=== PATIENT | female | born 1955 | race Caucasian/White ===

== ENCOUNTER → 2017-06-29 | Outpatient (CLI) | payer OTHER ==
[~2017-06-29] MED LIST: ASPI81CH; DEXL60CA3; DILT120; LOSA50; Stool Softener100 MG
[2017-06-29 10:36] LABS: BASOPHILS ABSOLUTE AUTO 0.03 K/mm3 (0.00-0.23); BASOPHILS PERCENT AUTO 0 % (0-2); EOSINOPHILS ABSOLUTE AUTO 0.03 K/mm3 (0.00-0.68); EOSINOPHILS PERCENT AUTO 0 % (0-6); Hematocrit 37.1 % (33.0-51.0); Hemoglobin 12.7 g/dL (11.5-16.0); IMMATURE GRAN ABSOLUTE AUTO 0.02 K/mm3 (0.00-0.10); IMMATURE GRAN PERCENT AUTO 0 % (0-1); LYMPHOCYTES ABSOLUTE AUTO 1.75 K/mm3 (0.84-5.20); LYMPHOCYTES PERCENT AUTO 23 % (21-46); MONOCYTES ABSOLUTE AUTO 0.36 K/mm3 (0.16-1.47); MONOCYTES PERCENT AUTO 5 % (4-13); Mean Corpuscular HGB 30.3 pg (26.0-34.0); Mean Corpuscular HGB Conc 34.2 g/dL (31.5-36.5); Mean Corpuscular Volume 89 fL (80-100); Mean Platelet Volume 10.3 fL (9.1-12.4); NEUTROPHILS ABSOLUTE AUTO 5.35 K/mm3 (1.96-9.15); NEUTROPHILS PERCENT AUTO 71 % (41-73); Platelet Count 273 K/mm3 (150-400); RDW Coefficient Variation 11.9 % (11.7-14.2); Red Blood Cell Count 4.19 M/mm3 (3.80-5.20); White Blood Cell Count 7.54 K/mm3 (4.00-11.30)
[2017-06-29 11:00] LABS: Alanine Aminotransfer (ALT/SGP 20 U/L (12-78); Albumin, Blood 3.9 g/dL (3.4-5.0); Albumin/Globulin Ratio 1.1 (0.8-1.8); Alk Phos 84 U/L (40-126); Anion Gap 11 mmol/L (6-16); Aspartate Aminotrans (AST/SGOT 11 U/L (12-37); Bilirubin, Total 0.4 mg/dL (0.1-1.0); Blood Urea Nitrogen 7 mg/dL (8-24); Bun/Creatinine Ratio 9.6 (12.0-20.0); CO2, Blood 24 mmol/L (21-32); Calcium, Blood 9.1 mg/dL (8.5-10.1); Chloride, Blood 103 mmol/L (98-108); Creatinine, Blood 0.73 mg/dL (0.40-1.00); Globulin, Blood 3.4 g/dL (2.2-4.0); Glomerular Filtration Rate >60 (60-); Glucose, Blood 103 mg/dL (70-99); Potassium, Blood 3.4 mmol/L (3.5-5.5); Sodium, Blood 138 mmol/L (136-145); Total Protein, Blood 7.3 g/dL (6.4-8.2); Troponin I <0.017 ng/mL (0.000-0.040)
== END ==
LOC: LAB EV 10:31
PROVIDERS: Physician Assistant
DX: R10.84 Generalized abdominal pain (principal); R07.9 Chest pain, unspecified
CPT/HCPCS: 80053; 83690; 84484; 85025; 85379

== ENCOUNTER 2018-02-01 11:53 | Day surgery (SDC) | payer OTHER, MEDICARE ==
[~2018-02-01] VITALS: Ht 157.5 cm; Wt 71.9 kg
[2018-02-01] MEDS ORDERED: DEXL60CA3 (12:21)
[2018-02-01] MEDS ORDERED: DILT120 (12:21)
[2018-02-01] MEDS ORDERED: ASPI81CH (12:22)
[2018-02-01] MEDS ORDERED: LOSA50 (12:22)
[2018-02-01] MEDS ORDERED: Stool Softener100 MG (12:23)
== END 2018-02-01 14:40 | disposition home or self-care (01) ==
LOC: ORSCSDS 11:53
PROVIDERS: Internal Medicine Gastroenterology
PROC: 0DJD8ZZ Inspection of Lower Intestinal Tract, Via Natural or Artificial Opening Endoscopic (ICD-10-PCS; principal; 2018-02-01 13:30)
PROC: 0DB68ZX Excision of Stomach, Via Natural or Artificial Opening Endoscopic, Diagnostic (ICD-10-PCS; principal; 2018-02-01 13:30)
DX: K21.9 Gastro-esophageal reflux disease without esophagitis (principal); K29.50 Unspecified chronic gastritis without bleeding; K44.9 Diaphragmatic hernia without obstruction or gangrene; Z12.11 Encounter for screening for malignant neoplasm of colon; K64.8 Other hemorrhoids; K57.30 Diverticulosis of large intestine without perforation or abscess without bleeding; I10 Essential (primary) hypertension; E78.5 Hyperlipidemia, unspecified; Z79.82 Long term (current) use of aspirin; Z79.899 Other long term (current) drug therapy
CPT/HCPCS: 43239; G0121; J7120

== ENCOUNTER → 2018-09-27 | Outpatient (CLI) | payer OTHER, MEDICARE | END | disposition home or self-care (01) | LOC: LAB SHORT 10:58 → PLD 10:58 | DX: D22.61 Melanocytic nevi of right upper limb, including shoulder (principal); L82.1 Other seborrheic keratosis | CPT/HCPCS: 88305 ==

== ENCOUNTER → 2020-02-27 | Outpatient (CLI) | payer OTHER, MEDICARE | LOC: LAB SHORT 10:47 → PLD 10:47 | DX: C44.41 Basal cell carcinoma of skin of scalp and neck (principal) | CPT/HCPCS: 88305 ==

== ENCOUNTER → 2021-03-11 | Outpatient (CLI) | payer OTHER, MEDICARE | END | disposition home or self-care (01) | LOC: LAB SHORT 12:09 → LAB 12:09 | DX: D22.62 Melanocytic nevi of left upper limb, including shoulder (principal) | CPT/HCPCS: 88305 ==

== ENCOUNTER → 2021-05-11 | Outpatient (CLI) | payer OTHER, MEDICARE | END | disposition home or self-care (01) | LOC: LAB SHORT 14:00 | DX: R30.0 Dysuria (principal) | CPT/HCPCS: 87086 ==

== ENCOUNTER 2023-12-03 05:41 | Day surgery (SDC) | payer MEDICARE, OTHER ==
[2023-12-03] MEDS ORDERED: NS 1,000 ML IV ONE (06:05)
[2023-12-03] MEDS ORDERED: AMLO5 PO (06:17)
[2023-12-03] MEDS ORDERED: EZET10 PO (06:18)
[2023-12-03 06:32] VITALS: BP 152/88
[2023-12-03] MEDS ORDERED: Benzocaine Oral Spray 0.5ML UD ONE (06:43)
[2023-12-03 06:45] VITALS: BP 154/88
--- NOTE | 2023-12-03 07:14 | NUR ---
ASSUMED CARE FROM ANESTHESIA. PT AWAKE AND VERBALIZING WELL.
[2023-12-03 07:15] VITALS: BP 135/98
[2023-12-03 07:18] VITALS: BP 126/88
[2023-12-03 07:24] VITALS: BP 113/84
[2023-12-03 07:30] VITALS: BP 118/70
--- NOTE | 2023-12-03 07:45 | NUR ---
PT AMB IN RM /S DIFFICULTY. IV REMOVED. PT AND VERBALIZED UNDERSTANDING OF WRITTEN AND VERBAL D/C INST.
--- NOTE | 2023-12-03 08:00 | NUR ---
PT TAKEN OUT OF THE [facility]RT [facility]ENTER VIA W/C.
[2023-12-03] MEDS ORDERED: Lidocaine HCl 2% 20 MG/ML 5ML SYR IV ONE (09:27)
[2023-12-03] MEDS ORDERED: Propofol 10mg/ml 20 ml Vial (Procedural) IV ONE (09:27)
== END 2023-12-03 09:00 | disposition home or self-care (01) ==
LOC: MHTC 05:41
DX: I70.0 Atherosclerosis of aorta (principal); I34.0 Nonrheumatic mitral (valve) insufficiency; I63.9 Cerebral infarction, unspecified; I71.20 Thoracic aortic aneurysm, without rupture, unspecified; I51.7 Cardiomegaly; Z95.4 Presence of other heart-valve replacement; K21.9 Gastro-esophageal reflux disease without esophagitis; I10 Essential (primary) hypertension; E78.5 Hyperlipidemia, unspecified; Z88.5 Allergy status to narcotic agent; Z88.8 Allergy status to other drugs, medicaments and biological substances; Z79.82 Long term (current) use of aspirin; Z79.899 Other long term (current) drug therapy
CPT/HCPCS: 93312; 93325; A9270; J2001; J2704; J7030